=== PATIENT | female | born 1990 | race Caucasian/White ===

== ENCOUNTER 2017-12-18 16:35 | Emergency (ER) | payer OTHER ==
[2017-12-18] MEDS ORDERED: ACETAMINOPHEN 500 MG TAB ONE (17:15)
[2017-12-18] MEDS ORDERED: ONDANSETRON 4 MG/2 ML VIAL ONE ×2 (17:15→18:44)
[2017-12-18] MEDS ORDERED: FAMOTIDINE 20 MG/2 ML VIAL IV ONE (17:15)
[2017-12-18 17:34] LABS: Absolute Lymphocytes (CBC) 0.8 K/uL (0.7-4.9); Absolute Monocytes 0.3 K/uL (0.1-1.3); Absolute Neutrophil 9.9 K/uL (1.8-8.0); Basophils % 0.8 % (0-1.3); Hematocrit 39.8 % (36.0-45.0); MCH 29.5 pg (27.0-35.0); MCV 88.1 fL (80-100); MPV 12.5 fL (7.6-11.3); Monocytes % 2.7 % (3.3-12.3); RBC Red Blood Cell Count 4.52 M/uL (3.86-4.86)
[2017-12-18 17:39] LABS: Urine Blood NEGATIVE (NEG); Urine Glucose NEGATIVE (NEG); Urine Protein 2+ (NEG)
[2017-12-18 17:43] LABS: Bicarbonate 24 mEq/L (21-31); Glucose Level 124 mg/dL (65-120); Lipase 19 U/L (22-51); Potassium 3.9 mEq/L (3.6-5.0); Sodium Level 135 mEq/L (135-145)
[2017-12-18 17:50] LABS: ALT/SGPT 17 IU/L (10-60); AST/SGOT 19 IU/L (10-42); Albumin 4.2 g/dL (3.2-5.5); Alkaline Phosphatase 51 IU/L (42-121); Amylase Level 57 U/L (28-100); BUN Blood Urea Nitrogen 14 mg/dL (6-20); Bilirubin Direct 0.1 mg/dL (0-0.2); Bilirubin Total 0.9 mg/dL (0.3-1.2); Protein, Total 7.2 g/dL (6.0-8.3)
[2017-12-18 17:56] LABS: Urine Bacteria <20 /HPF (<20); Urine RBC <5 /HPF (NONE SEEN)
[2017-12-18 17:57] LABS: Urine Amorphous Sediment TRACE /HPF (NONE SEEN); Urine Culture Reflex Order NOT NEEDED
[2017-12-18] MEDS ORDERED: NA CHLORIDE 0.9% 1,000 ML ONE (18:44)
[2017-12-18 18:54] LABS: Blood Morphology Comment NOT SEEN (NOT SEEN); Platelet Estimate DECR; Urine White Blood Cell Casts OK
--- NOTE | 2017-12-18 19:38 | ER ---
Nurse's Notes [facility] Name: Leah Galvan Age: 27 yrs Sex: Female : 1990 Arrival Date: 12/18/2017 Time: 16:39 Bed 5 Private MD: Diagnosis: Nausea and vomiting Presentation: 12/18 16:43 Presenting complaint: Patient states: headache, N/V since this morning. Transition of la1 care: patient was not received from another setting of care. Onset of symptoms was December 18, 2017. Initial Sepsis Screen: Does the patient meet any 2 criteria? No. Patient's initial sepsis screen is negative. Does the patient have a suspected source of infection? No. Patient's initial sepsis screen is negative. Care prior to arrival: None. 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 - Social history:: Smoking status: Patient/guardian denies using tobacco. Screenin:20 Abuse screen: Denies threats or abuse. Denies injuries from another. Nutritional jl7 screening: No deficits noted. Tuberculosis screening: No symptoms or risk factors identified. Fall Risk IV access (20 points). Total Martin Fall Scale indicates No Risk (0-24 pts). Assessment: 17:20 General: Appears in no apparent distress. uncomfortable, Behavior is calm, cooperative, jl7 appropriate for age. Pain: Complains of pain in headache Pain does not radiate. Pain currently is 4 out of 10 on a pain scale. at worst was 10 out of 10 on a pain scale. Pain began 1 day ago. Is intermittent. Neuro: Level of Consciousness is awake, alert, obeys commands, Oriented to person, place, time, situation, Moves all extremities. Gait is steady, Speech is normal, Facial symmetry appears normal, Pupils are PERRLA. Cardiovascular: Patient's skin is warm and dry. Respiratory: Airway is patent Respiratory effort is even, unlabored, Respiratory pattern is regular, symmetrical. GI: Abdomen is round non-distended, Bowel sounds present X 4 quads. Abd is soft and non tender X 4 quads. : No signs and/or symptoms were reported regarding the genitourinary system. EENT: No signs and/or symptoms were reported regarding the EENT system. Derm: Skin is pink, warm \T\ dry. Musculoskeletal: No signs and/or symptoms reported regarding the musculoskeletal system. 18:31 Reassessment: PO fluids provided per provider. ae1 19:45 Reassessment: Patient appears in no apparent distress at this time. Patient and/or tl1 family updated on plan of care and expected duration. Pain level reassessed. Patient is alert, oriented x 3, equal unlabored respirations, skin warm/dry/pink. Pt verbalized understanding of discharge instructions, need for follow up and prescription usage Patient states feeling better. Vital Signs: 16:44 BP 113 / 68; Pulse 73; Resp 16; Temp 96.8(TE); Pulse Ox 100% on R/A; Weight 90.72 kg; la1 Height 5 ft. 7 in. (170.18 cm); 18:49 BP 104 / 68; Pulse 57; Resp 16 S; Temp 98.2(O); Pulse Ox 100% on R/A; Pain 0/10; jl7 19:18 BP 104 / 67; Pulse 63; Resp 18; Pulse Ox 100% on R/A; tl2 16:44 Body Mass Index 31.32 (90.72 kg, 170.18 cm) la1 ED Course: 16:39 Patient arrived in ED. sb2 16:44 Triage completed. la1 16:44 Arm band placed on right wrist. la1 16:50 Ronnie Meng PA is PHCP. cp 16:50 Ozzie Jason MD is Attending Physician. cp 17:20 Patient has correct armband on for positive identification. Bed in low position. Call jl7 light in reach. Side rails up X 1. Pulse ox on. NIBP on. Warm blanket given. 17:20 Initial lab(s) drawn, by me, sent to lab. Urine collected: clean catch specimen. jl7 Inserted saline lock: 20 gauge in right antecubital area, using aseptic technique. Blood collected. 17:29 Doc Miles, RN is Primary Nurse. jl7 19:45 No provider procedures requiring assistance completed. IV discontinued, intact, tl1 bleeding controlled, No redness/swelling at site. Pressure dressing applied. Administered Medications: 17:20 Drug: Zofran 4 mg Route: IVP; Site: right antecubital; jl7 18:30 Follow up: Response: No adverse reaction; Nausea is decreased jl7 17:23 Drug: Pepcid 20 mg Route: IVP; Site: right antecubital; jl7 18:30 Follow up: Response: No adverse reaction jl7 17:41 Drug: Tylenol 1000 mg Route: PO; jl7 19:48 Follow up: Response: No adverse reaction tl1 18:45 Drug: NS 0.9% 1000 ml Route: IV; Rate: 1 bolus; Site: right antecubital; jl7 19:47 Follow up: IV Status: Completed infusion; IV Intake: 1000ml tl1 18:47 Drug: Zofran 4 mg Route: IVP; Site: right antecubital; jl7 19:47 Follow up: Response: No adverse reaction; Nausea is decreased tl1 Intake: 19:47 IV: 1000ml; Total: 1000ml. tl1 Outcome: 19:37 Discharge ordered by . cp 19:45 Discharged to home ambulatory. tl1 19:45 Condition: stable 19:45 Discharge instructions given to patient, Instructed on discharge instructions, follow up and referral plans. medication usage, Demonstrated understanding of instructions, follow-up care, medications, Prescriptions given X 1. 19:48 Patient left the ED. tl1 Signatures: Albert López, RN RN la1 Whit Dudley RN RN tl1 Ronnie Meng PA PA cp Knox, Taylor RN RN tl2 Bobby Dos Santos RN RN sophia1 Doc Miles RN RN jl7 Niya Rankin sb2
--- NOTE | 2017-12-18 19:38 | EDPHYS ---
Physician Documentation [facility] Name: Leah Galvan Age: 27 yrs Sex: Female : 1990 Arrival Date: 12/18/2017 Time: 16:39 Bed 5 Private MD: ED Physician Ozzie Jason HPI: 12/18 17:21 This 27 yrs old Female presents to ER via Ambulatory with complaints of cp Vomiting, Headache. 17:21 The patient presents to the emergency department with nausea, with "dry heaves", cp vomiting, 3 times today. Onset: The symptoms/episode began/occurred this morning. Possible causes: history of gastric sleeve surgery. Associated signs and symptoms: Pertinent positives: headache, Pertinent negatives: abdominal pain, constipation, diarrhea, dysuria, fever, GI bleeding. 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 - Social history:: Smoking status: Patient/guardian denies using tobacco. ROS: 17:30 Constitutional: Positive for poor PO intake, Negative for body aches, chills, fever. cp 17:30 Eyes: Negative for injury, pain, redness, and discharge. cp 17:30 ENT: Negative for drainage from ear(s), ear pain, sore throat, difficulty swallowing, difficulty handling secretions. 17:30 Neck: Negative for pain with movement, pain at rest, stiffness, tenderness, bony tenderness. 17:30 Cardiovascular: Negative for chest pain, palpitations. 17:30 Respiratory: Negative for cough, shortness of breath, wheezing. 17:30 Abdomen/GI: Positive for nausea and vomiting, Negative for abdominal pain, diarrhea, constipation, dysphagia, hematemesis, black/tarry stool, rectal bleeding. 17:30 : Negative for urinary symptoms. 17:30 Skin: Negative for cellulitis, rash. 17:30 Neuro: Positive for headache, Negative for altered mental status, dizziness, syncope, near syncope, weakness. 17:30 All other systems are negative. Exam: 17:35 Constitutional: The patient appears in no acute distress, alert, awake, non-toxic, well cp developed, well nourished. 17:35 Head/Face: Normocephalic, atraumatic. Eyes: Pupils equal round and reactive to light, cp extra-ocular motions intact. Lids and lashes normal. Conjunctiva and sclera are non-icteric and not injected. Cornea within normal limits. Periorbital areas with no swelling, redness, or edema. ENT: Nares patent. No nasal discharge, no septal abnormalities noted. Tympanic membranes are normal and external auditory canals are clear. Oropharynx with no redness, swelling, or masses, exudates, or evidence of obstruction, uvula midline. Mucous membranes moist. Neck: Trachea midline, no thyromegaly or masses palpated, and no cervical lymphadenopathy. Supple, full range of motion without nuchal rigidity, or vertebral point tenderness. No Meningismus. Chest/axilla: Normal chest wall appearance and motion. Nontender with no deformity. No lesions are appreciated. 17:35 Cardiovascular: Rate: normal, Rhythm: regular, Pulses: Pulses are 2+ in right radial artery and left radial artery. Edema: is not appreciated, JVD: is not appreciated. 17:35 Respiratory: the patient does not display signs of respiratory distress, Respirations: normal, no use of accessory muscles, no retractions, no splinting, no tachypnea, labored breathing, is not present, Breath sounds: are clear throughout, no decreased breath sounds, no stridor, no wheezing. 17:35 Abdomen/GI: Inspection: abdomen appears normal, Bowel sounds: active, all quadrants, Palpation: abdomen is soft and non-tender, in all quadrants, rebound tenderness, is not appreciated, voluntary guarding, is not appreciated, involuntary guarding, is not appreciated. 17:35 Back: pain, is absent, ROM is normal, CVA tenderness, is absent. 17:35 Skin: cellulitis, is not appreciated, no rash present. 17:35 Neuro: Orientation: to person, place \\T\\ time. Mentation: lucid, able to follow commands, Cerebellar function: is grossly normal, Motor: moves all fours, strength is normal, Sensation: no obvious gross deficits, Gait: is steady. Vital Signs: 16:44 BP 113 / 68; Pulse 73; Resp 16; Temp 96.8(TE); Pulse Ox 100% on R/A; Weight 90.72 kg; la1 Height 5 ft. 7 in. (170.18 cm); 18:49 BP 104 / 68; Pulse 57; Resp 16 S; Temp 98.2(O); Pulse Ox 100% on R/A; Pain 0/10; jl7 19:18 BP 104 / 67; Pulse 63; Resp 18; Pulse Ox 100% on R/A; tl2 16:44 Body Mass Index 31.32 (90.72 kg, 170.18 cm) la1 MDM: 16:50 Patient medically screened. cp 18:00 Differential diagnosis: gastritis, pancreatitis, appendicitis, viral gastroenteritis, cp gastroenteritis, dehydration. 19:35 Data reviewed: vital signs, nurses notes, lab test result(s). cp 19:35 Counseling: I had a detailed discussion with the patient and/or guardian regarding: the cp historical points, exam findings, and any diagnostic results supporting the discharge/admit diagnosis, lab results, the need for outpatient follow up, a family practitioner, to return to the emergency department if symptoms worsen or persist or if there are any questions or concerns that arise at home. Response to treatment: the patient's symptoms have markedly improved after treatment. 19:35 ED course: VSS. Nausea markedly improved in ED. Patient observed tolerating po fluids cp and crackers. Will discharge to home for continued monitoring. 12/18 17:11 Order name: Amylase, Serum cp 12/18 17:11 Order name: Basic Metabolic Panel cp 12/18 17:11 Order name: CBC with Diff cp 12/18 17:11 Order name: Creatinine for Radiology cp 12/18 17:11 Order name: Hepatic Function; Complete Time: 18:01 cp 12/18 18:14 Interpretation: Reviewed. cp 12/18 17:11 Order name: Lipase; Complete Time: 18:01 cp 12/18 18:01 Interpretation: LIP 19; Reviewed. cp 12/18 17:11 Order name: Urine Microscopic Only; Complete Time: 18:01 cp 12/18 18:13 Interpretation: Normal except: SQEPI 5-10. cp 12/18 17:11 Order name: Amylase Level; Complete Time: 18:01 EDMS 12/18 17:11 Order name: Basic Metabolic Panel; Complete Time: 18:01 EDMS 12/18 18:13 Interpretation: Normal except: GLUC 124. cp 12/18 17:11 Order name: CBC with Automated Diff; Complete Time: 19:05 EDMS 12/18 18:02 Interpretation: Normal except: WBC 11.1; PLT 131; MPV 12.5; NOHELIA% 89.5; LYM% 7.0; MN% cp 2.7; NEUT A 9.9. 12/18 17:12 Order name: Creatinine (Radiology Only); Complete Time: 18:01 EDMS 12/18 17:38 Order name: Urine Dipstick--Ancillary (enter results); Complete Time: 18:01 ag 12/18 18:01 Interpretation: Normal except: UKET 2+; UPROT 2+. cp 12/18 17:38 Order name: Urine --Ancillary (enter results); Complete Time: 18:01 ag 12/18 18:14 Interpretation: Reviewed. cp 12/18 18:54 Order name: CBC Smear Scan; Complete Time: 19:05 EDMS 12/18 17:11 Order name: Urine Test (obtain specimen); Complete Time: 17:35 cp 12/18 17:11 Order name: IV Saline Lock; Complete Time: 17:35 cp 12/18 17:11 Order name: Labs collected and sent; Complete Time: 17:35 cp 12/18 17:11 Order name: Urine Dipstick-Ancillary (obtain specimen); Complete Time: 17:35 cp 12/18 18:02 Order name: PO challenge; Complete Time: 18:31 cp Administered Medications: 17:20 Drug: Zofran 4 mg Route: IVP; Site: right antecubital; jl7 18:30 Follow up: Response: No adverse reaction; Nausea is decreased jl7 17:23 Drug: Pepcid 20 mg Route: IVP; Site: right antecubital; jl7 18:30 Follow up: Response: No adverse reaction jl7 17:41 Drug: Tylenol 1000 mg Route: PO; jl7 19:48 Follow up: Response: No adverse reaction tl1 18:45 Drug: NS 0.9% 1000 ml Route: IV; Rate: 1 bolus; Site: right antecubital; jl7 19:47 Follow up: IV Status: Completed infusion; IV Intake: 1000ml tl1 18:47 Drug: Zofran 4 mg Route: IVP; Site: right antecubital; jl7 19:47 Follow up: Response: No adverse reaction; Nausea is decreased tl1 Disposition: 12/18/17 19:37 Discharged to Home. Impression: Nausea and vomiting. - Condition is Stable. - Discharge Instructions: Nausea and Vomiting. - Prescriptions for Protonix 40 mg Oral Tablet, Delayed Release (E.C.) - take 1 tablet by ORAL route once daily; 15 tablet. Zofran 4 mg Oral Tablet - take 1 tablet by ORAL route every 12 hours As needed; 20 tablet. - Medication Reconciliation Form, Thank You Letter, Antibiotic Education, Prescription Opioid Use form. - Follow up: Private Physician; When: 1 - 2 days; Reason: Recheck today's complaints. - Problem is new. - Symptoms have improved. Addendum: 12/23/2017 22:02 Co-signature as Attending Physician, Ozzie Jason MD. g s Signatures: Dispatcher [employer] EDMS Albert López RN RN la1 Whit Dudley RN RN tl1 Ronnie Meng PA PA cp Leal, Jahala RN RN jl7 Ozzie Jason MD MD gs Corrections: (The following items were deleted from the chart) 12/18 19:48 19:37 12/18/2017 19:37 Discharged to Home. Impression: Nausea and vomiting. Condition tl1 is Stable. Forms are Medication Reconciliation Form, Thank You Letter, Antibiotic Education, Prescription Opioid Use. Follow up: Private Physician; When: 1 - 2 days; Reason: Recheck today's complaints. Problem is new. Symptoms have improved. cp
[2017-12-18 19:54] VITALS: O2SAT 100
[2017-12-18 19:55] VITALS: TEMP 98.2
[2017-12-18 19:57] VITALS: BP 104/67
== END 2017-12-18 19:48 | disposition home or self-care (01) ==
LOC: ER 16:35
DX: R11.2 Nausea with vomiting, unspecified (principal); Z98.84 Bariatric surgery status
CPT/HCPCS: 36415; 80048; 80076; 81003; 81015; 81025; 82150; 83690; 85025; 96361; 96374; 96375; 99284; J2405; J7030